=== PATIENT | female | born 1960 | race Caucasian/White ===

== ENCOUNTER → 2024-03-03 13:48 | Outpatient (REF) | payer BC, SELFPAY | LOC: HWWDC 13:48 | PROVIDERS: ATTENDING PHYSICIAN Obstetrics & Gynecology; FAMILY PHYSICIAN Family Medicine | DX: Z12.31 Encounter for screening mammogram for malignant neoplasm of breast (principal) | CPT/HCPCS: 77063; 77067 ==

== ENCOUNTER → 2024-08-04 13:11 | Outpatient (REF) | payer BC, SELFPAY | LOC: WDC 13:11 | PROVIDERS: ATTENDING PHYSICIAN Family Medicine | DX: R92.30 Dense breasts, unspecified (principal) | CPT/HCPCS: 76641 ==

== ENCOUNTER → 2025-04-02 11:25 | Outpatient (REF) | payer BC, SELFPAY | LOC: HWWDC 11:25 | PROVIDERS: ATTENDING PHYSICIAN Obstetrics & Gynecology; FAMILY PHYSICIAN Internal Medicine | DX: Z12.31 Encounter for screening mammogram for malignant neoplasm of breast (principal) | CPT/HCPCS: 77063; 77067 ==